=== PATIENT | female | born 1980 | race Caucasian/White ===

== ENCOUNTER 2017-03-04 10:24 | Emergency (ER) | payer SELFPAY ==
[~2017-03-04] VITALS: Ht 160 cm; Wt 67.4 kg
[2017-03-04 10:29] VITALS: BP 109/76
[2017-03-04] MEDS ORDERED: OXYcodone/APAP 10/325MG TABLET ONE (11:25)
[2017-03-04] MEDS ORDERED: OXYcodone/APAP 10/325MG TABLET PO ONE (11:30)
[2017-03-04 12:02] LABS: BLOOD UREA NITROGEN 7 mg/dL (7-18)
[2017-03-04 12:25] LABS: PATH.CAST-FLAG NOT PRESENT; SPERM-FLAG NOT PRESENT; SRC-FLAG NOT PRESENT; XTAL-FLAG NOT PRESENT; YLC-FLAG NOT PRESENT
== END 2017-03-04 14:04 | disposition home or self-care (01) ==
LOC: ED 13:01
DX: R10.2 Pelvic and perineal pain (principal); G89.18 Other acute postprocedural pain
CPT/HCPCS: 36415; 76830; 80048; 81001; 82040; 85025

== ENCOUNTER 2017-03-12 07:41 | Emergency (ER) | payer MEDICAID, OTHER ==
[~2017-03-12] VITALS: Ht 160 cm; Wt 66.0 kg
[2017-03-12 07:45] VITALS: BP 125/82
[2017-03-12] MEDS ORDERED: ONDANSETRON 2MG/ML, 2ML ONE (08:19)
[2017-03-12] MEDS ORDERED: MORPHINE SULFATE 4 MG/ML, 1ML ONE (08:19)
[2017-03-12] MEDS ORDERED: ONDANSETRON 2MG/ML, 2ML IVPush ONE (08:30)
[2017-03-12] MEDS ORDERED: SODIUM CHLORIDE 0.9% 1,000ML IVBOLUS ONE (08:30)
[2017-03-12] MEDS ORDERED: SODIUM CHLORIDE FLUSH 10ML SYR IVF ONE (08:30)
[2017-03-12] MEDS ORDERED: MORPHINE SULFATE 4 MG/ML, 1ML IVPush PRN (08:30)
[2017-03-12 08:42] LABS: BLOOD UREA NITROGEN 22 mg/dL (7-18)
[2017-03-12] MEDS ORDERED: OXYcodone/APAP 5/325MG TABLET PO ONE (09:30)
[2017-03-12] MEDS ORDERED: OXYcodone/APAP 5/325MG TABLET ONE (09:51)
== END 2017-03-12 09:56 | disposition home or self-care (01) ==
LOC: EDBD 07:41 → ED 08:44
DX: L03.311 Cellulitis of abdominal wall (principal); N99.842 Postprocedural seroma of a genitourinary system organ or structure following a genitourinary system procedure; Z90.710 Acquired absence of both cervix and uterus
CPT/HCPCS: 36415; 76856; 80048; 82040; 85025

== ENCOUNTER 2018-08-22 23:35 | Emergency (ER) | payer MEDICAID, OTHER ==
[~2018-08-22] VITALS: Ht 160 cm; Wt 70.0 kg
[2018-08-22 23:36] VITALS: BP 101/53
== END 2018-08-23 00:06 | disposition home or self-care (01) ==
LOC: ED 23:54
DX: M79.671 Pain in right foot (principal)
CPT/HCPCS: 99283

== ENCOUNTER 2018-09-30 15:15 | Emergency (ER) | payer MEDICAID ==
[~2018-09-30] VITALS: Ht 160 cm; Wt 72.9 kg
[2018-09-30 15:30] VITALS: BP 121/80
[2018-09-30] MEDS ORDERED: DEXAMETHASONE 4 MG TABLET ONE (16:24)
[2018-09-30] MEDS ORDERED: BENZONATATE 100 MG CAPSULE ONE (16:24)
[2018-09-30] MEDS ORDERED: BENZONATATE 100 MG CAPSULE PO ONE (16:30)
[2018-09-30] MEDS ORDERED: DEXAMETHASONE 4 MG TABLET PO ONE (16:30)
== END 2018-09-30 16:48 | disposition home or self-care (01) ==
LOC: ED 16:00
DX: H65.03 Acute serous otitis media, bilateral (principal); H72.93 Unspecified perforation of tympanic membrane, bilateral; M19.90 Unspecified osteoarthritis, unspecified site; Z90.710 Acquired absence of both cervix and uterus
CPT/HCPCS: 71046; 99283

== ENCOUNTER 2020-11-01 14:06 | Emergency (ER) | payer MEDICAID ==
[~2020-11-01] VITALS: Ht 160 cm; Wt 100.1 kg
[~2020-11-01 14:06] MED LIST: FLUO40CA9 PO; GABA300C10 PO; HYDR-826 PO; QUET200T7 PO
[2020-11-01 14:12] VITALS: BP 118/81
--- NOTE | 2020-11-01 14:38 | NUR ---
PT IS A 48F COMPLAINING OF N/V/D FOR THE LAST 3 DAYS BUT HAS HAD NONE TODAY. NEEDS A NOTE TO RETURN TO WORK. PROVIDER AT BEDSIDE FOR EVAL. NO ADDITIONAL NEEDS AT THIS TIME. CALL LIGHT WITHIN REACH.
--- NOTE | 2020-11-01 14:54 | NUR ---
Patient/Caregiver given discharge instructions and they have confirmed that they understand the instructions. Patient ambulatory with steady gait.
== END 2020-11-01 15:07 | disposition home or self-care (01) ==
LOC: ED 14:20
DX: R11.2 Nausea with vomiting, unspecified (principal); E86.0 Dehydration; R19.7 Diarrhea, unspecified; R10.9 Unspecified abdominal pain
CPT/HCPCS: 99281

== ENCOUNTER 2020-11-03 11:20 | Emergency (ER) | payer MEDICAID ==
[~2020-11-03] VITALS: Ht 160 cm; Wt 102.0 kg
[2020-11-03 11:34] VITALS: BP 126/87
[2020-11-03] MEDS ORDERED: HYDROcodone/APAP 5/325 TABLET PO ONE (12:00)
[2020-11-03] MEDS ORDERED: HYDROcodone/APAP 5/325 TABLET ONE ×2 (12:19→12:21)
--- NOTE | 2020-11-03 12:40 | NUR ---
pt d/c with d/c summary and scripts. all questions answered. pt ambulates to registration desk with steady gait for d/c home with friend. pt denies any other needs pertaining to this visit.
== END 2020-11-03 12:43 | disposition home or self-care (01) ==
LOC: ED 12:01
DX: K02.9 Dental caries, unspecified (principal); K08.89 Other specified disorders of teeth and supporting structures; Z90.710 Acquired absence of both cervix and uterus; Z87.891 Personal history of nicotine dependence; Z89.429 Acquired absence of other toe(s), unspecified side
CPT/HCPCS: 99283

== ENCOUNTER 2020-11-04 14:33 | Emergency (ER) | payer MEDICAID ==
[~2020-11-04] VITALS: Ht 160 cm; Wt 104.0 kg
[2020-11-04] MEDS ORDERED: HYDROcodone/APAP 10/325 MG TABLET ONE (15:24)
[2020-11-04] MEDS ORDERED: CLINDAMYCIN 300 MG CAPSULE ONE ×2 (15:24→15:39)
[2020-11-04] MEDS ORDERED: CLINDAMYCIN 150 MG/ML, 6ML ONE (15:29)
[2020-11-04] MEDS ORDERED: CLINDAMYCIN 150 MG/ML, 6ML IM ONE (15:30)
[2020-11-04] MEDS ORDERED: HYDROcodone/APAP 10/325 MG TABLET PO ONE (15:30)
[2020-11-04 15:41] VITALS: BP 124/85
[2020-11-04] MEDS ORDERED: CLINDAMYCIN 300 MG CAPSULE PO ONE (16:00)
== END 2020-11-04 16:41 | disposition home or self-care (01) ==
LOC: ED 15:12
DX: K02.9 Dental caries, unspecified (principal); K08.89 Other specified disorders of teeth and supporting structures; Z87.891 Personal history of nicotine dependence; Z90.710 Acquired absence of both cervix and uterus; Z89.429 Acquired absence of other toe(s), unspecified side
CPT/HCPCS: 70100; 99283; 99284